=== PATIENT | female | born 1955 | race Two or more races ===

== ENCOUNTER 2017-02-02 06:55 | Outpatient (CLI) | END 2017-02-02 06:57 | disposition short-term general hospital (02) | LOC: AMBL 06:55 | PROVIDERS: ATTEND Emergency Medicine | DX: R06.03 Acute respiratory distress (principal); Z99.81 Dependence on supplemental oxygen; R00.0 Tachycardia, unspecified ==

== ENCOUNTER 2017-05-09 05:36 | Emergency (ER) ==
[2017-05-09] MEDS ORDERED: ANECTINE IVP STA (05:50)
[2017-05-09] MEDS: NORCURON IVP PRN ×3 (05:50→06:51)
[2017-05-09] MEDS ORDERED: DUONEB NEB STA (05:52)
[2017-05-09] MEDS ORDERED: SOLU-MEDROL 125 MG IVP STA (05:54)
[2017-05-09 06:07] VITALS: BMI 27.3
[2017-05-09] MEDS ORDERED: VERSED IVP STA (06:10)
--- NOTE | 2017-05-09 06:14 | ED.PDOC ---
General ED Provider: Dr. MARCEL MALDONADO Chief Complaint: Shortness of Air Stated Complaint: Patient is a 62 year old female who is brought by ambulance with shortness of breath. Time Seen by Physician: 05:50 Mode of Arrival: Ambulance Information Source: EMT Exam Limitations: Clinical condition Primary Care Provider: JOSE DIEZ Nursing and Triage Documentation Reviewed and Agree: Yes Reviewed sepsis parameters & appropriate labs ordered?: Yes System Inflammatory Response Syndrome: Temp 96.8F or Lower Sepsis Protocol: For patient's 13 years and over: Temp is 96.8 and below OR 101 and greater Pulse >90 BPM Resp >20/minute Acutely Altered Mental Status Are patient's symptoms suggestive of a new infection, such as: -Pneumonia -Skin, Soft Tissue -Endocarditis -UTI -Bone, Joint Infection -Implantable Device -Acute Abdominal Infection -Wound Infection -Meningitis -Blood Stream Catheter Infection -Unknown Respiratory Complaint Exam - Respiratory Complaint/Exam Onset/Duration: 1 hour Symptoms Are: Still present Timing: Constant Initial Severity: Severe Current Severity: Severe Location: Chest Associated Signs and Symptoms: Reports: Rapid breathing, Dyspnea, Wheezing Pseudomonas Risk Factors: Reports: None Tuberculosis Risk Factors: Reports: None Home Oxygen Use: Yes Current Antibiotic Use: No Dysphagia Present: No Accessory Muscle Use: Yes (use of abdominal muscles) Retractions: Diaphragmatic Diminished Breath Sounds: Yes Kussmaul Respirations: No Differential Diagnoses: COPD Exacerbation, Pneumonia Non-Traumatic Chest Pain Syncope: EKG Performed Review of Systems - Review Of Systems Constitutional: Reports: Other (unable to obtain due to clinical condition. ) All Other Systems: Other (limite due to condition) Past Medical History - Past Medical History Endocrine: Reports: Dyslipidemia Cardiovascular: Reports: Hypertension, CHF, Other (PVD) Respiratory: Reports: COPD Hematological: Reports: Anemia Gastrointestinal: Reports: None Genitourinary: Reports: None Neuro/Psych: Reports: None Musculoskeletal: Reports: Arthritis, Back Pain Cancer: Reports: None Last Menstrual Period: na Other Pertinent Past Medical History: colon polyp - Surgical History General Surgical History: Reports: , Cholecystectomy, Orthopedic (foot surgery, Toe amputation.), Back Surgery, Other (colonoscopy, laparoscopy) - Family History Family History: Reports: Heart (heart failure- mother ), Cancer (father) - Social History Smoking Status: Current every day smoker (1.5 ppd x 20 years) Alcohol Screening: None - Immunizations Tetanus Shot up to Date: (unknown) Physical Exam - Physical Exam Appearance: Ill-appearing Ill-appearing: Severe Eyes: ALEKSANDAR, EOMI, Conjunctiva clear ENT: Nose normal, Oropharynx normal Neck: Supple Respiratory: Breath sounds diminished, Wheezes Cardiovascular: Tachycardia GI/: Soft Musculoskeletal: Normal strength Skin: Warm, Dry Neurological: Alert to pain Psychiatric: Anxious Interpretation - Radiology Interpretation Radiology Interpretation By: ED Physician Radiology Results: Positive (pulmonary EDEMA and possible infiltreate. ET tube 2 cm above the shital) Exam Interpreted: Portable CXR - Agriculture Specialist Time of Agriculture Specialist Interpretation: 05:55 Rate: Tachy Rhythm: Sinus - EKG Interpretation Time of EKG #1: 06:34 Rate: Tachy Rhythm: Sinus Ectopy: None [place]: NL ST Segment: Normal Interpretation: Left ventricuar Hypertrophy Procedures - Intubation Indication: Present: Respiratory Insufficiency Time of Intubation: 05:39 Medications: Yes: Norcuron, Succinylcholine, Versed Type of Tube Used: Endotracheal Tube Size: 7 Cricoid Pressure Used: No Tube Campuzano Used: Yes Position of Tube at Lip: 22 Number of Attempts: 1 Suction Used: No Glidescope Used: No CO2 Detector Used: Yes Lung Sounds Equal Bilaterally: Yes Intubation Complications: Present: No complications Tube Inserted By: Physician Tube Placement Verified by X-ray: Yes Progress/Xray Impression: 2 cm above the shital. Re-Evaluation - Re-Evaluation Time of Re-Evaluation: 07:17 Status: Improved Vital Signs Stable: Yes Lungs: Clear (good air movement) Physician Notification - Case Discussed Physician Notified: Dr Mason Time of Notification: 07:32 (Accepted to [facility]. ) Critical Care Note - Critical Care Note Total Time (mins): 55 Course - Course Hematology/Chemistry: 05/09/17 05:33 05/09/17 05:33 Orders, Labs, Meds: Lab Review 05/09/17 05/09/17 05/09/17 05:33 05:33 05:33 WBC 13.25 H RBC 3.68 L Hgb 10.6 L Hct 34.0 L MCV 92.4 MCH 28.8 MCHC 31.2 L RDW Coeff of Estephania 13.6 Plt Count 429 Immature Gran % (Auto) 0.8 Neut % (Auto) 51.9 Lymph % (Auto) 36.2 Terrell % (Auto) 6.6 Eos % (Auto) 3.9 Baso % (Auto) 0.6 Immature Gran # (Auto) 0.1 Neut # 6.9 Lymph # 4.8 H Terrell # 0.9 Eos # 0.5 Baso # 0.1 D-Dimer (Manual) Puncture Site O2 Saturation ABG pH ABG pCO2 ABG pO2 ABG HCO3 ABG Total CO2 ABG Base Excess Chip Test O2 Delivery Device FiO2 % Sodium 135 L Potassium 3.9 Chloride 102 Carbon Dioxide 21 L Anion Gap 15.9 BUN 13 Creatinine 1.42 H Estimated GFR (MDRD) 38.00 BUN/Creatinine Ratio 9.15 Glucose 366 H Lactic Acid Calcium 9.3 Total Bilirubin 0.3 AST 60 H ALT 29 Alkaline Phosphatase 184 H Total Creatine Kinase 92 Troponin I < 0.0100 B-Natriuretic Peptide 1292 H Total Protein 7.6 Albumin 3.2 L Globulin 4.4 Albumin/Globulin Ratio 0.73 Procalcitonin Urine Color Urine Clarity Urine pH Ur Specific [place] Urine Protein Urine Glucose (UA) Urine Ketones Urine Blood Urine Nitrite Urine Bilirubin Urine Urobilinogen Ur Leukocyte Esterase Urine Microscopic RBC Ur Squamous Epith Cells Amorphous Sediment Influenza A (Rapid) Influenza B (Rapid) 05/09/17 05/09/17 05/09/17 05:33 05:33 05:52 WBC RBC Hgb Hct MCV MCH MCHC RDW Coeff of Estephania Plt Count Immature Gran % (Auto) Neut % (Auto) Lymph % (Auto) Terrell % (Auto) Eos % (Auto) Baso % (Auto) Immature Gran # (Auto) Neut # Lymph # Terrell # Eos # Baso # D-Dimer (Manual) 4296.29 Puncture Site Lb O2 Saturation 94.0 L ABG pH 7.269 L* ABG pCO2 54.8 H ABG pO2 83.0 L ABG HCO3 25.1 ABG Total CO2 27 ABG Base Excess -2 Chip Test + O2 Delivery Device Vent FiO2 % 100.0 Sodium Potassium Chloride Carbon Dioxide Anion Gap BUN Creatinine Estimated GFR (MDRD) BUN/Creatinine Ratio Glucose Lactic Acid Calcium Total Bilirubin AST ALT Alkaline Phosphatase Total Creatine Kinase Troponin I B-Natriuretic Peptide Total Protein Albumin Globulin Albumin/Globulin Ratio Procalcitonin < 0.05 Urine Color Urine Clarity Urine pH Ur Specific [place] Urine Protein Urine Glucose (UA) Urine Ketones Urine Blood Urine Nitrite Urine Bilirubin Urine Urobilinogen Ur Leukocyte Esterase Urine Microscopic RBC Ur Squamous Epith Cells Amorphous Sediment Influenza A (Rapid) Influenza B (Rapid) 05/09/17 05/09/17 05/09/17 06:09 06:30 07:15 WBC RBC Hgb Hct MCV MCH MCHC RDW Coeff of Estephania Plt Count Immature Gran % (Auto) Neut % (Auto) Lymph % (Auto) Terrell % (Auto) Eos % (Auto) Baso % (Auto) Immature Gran # (Auto) Neut # Lymph # Terrell # Eos # Baso # D-Dimer (Manual) Puncture Site O2 Saturation ABG pH ABG pCO2 ABG pO2 ABG HCO3 ABG Total CO2 ABG Base Excess Chip Test O2 Delivery Device FiO2 % Sodium Potassium Chloride Carbon Dioxide Anion Gap BUN Creatinine Estimated GFR (MDRD) BUN/Creatinine Ratio Glucose Lactic Acid 21.9 H Calcium Total Bilirubin AST ALT Alkaline Phosphatase Total Creatine Kinase Troponin I B-Natriuretic Peptide Total Protein Albumin Globulin Albumin/Globulin Ratio Procalcitonin Urine Color Yellow Urine Clarity Slightly Urine pH 6.0 Ur Specific [place] 1.025 Urine Protein 2+ Urine Glucose (UA) Negative Urine Ketones Negative Urine Blood Trace-intact Urine Nitrite Negative Urine Bilirubin Negative Urine Urobilinogen 0.2 Ur Leukocyte Esterase Negative Urine Microscopic RBC 2-5 Ur Squamous Epith Cells 2-5 Amorphous Sediment 3+ Influenza A (Rapid) Negative by naat Influenza B (Rapid) Negative by naat 05/09/17 07:36 WBC RBC Hgb Hct MCV MCH MCHC RDW Coeff of Estephania Plt Count Immature Gran % (Auto) Neut % (Auto) Lymph % (Auto) Terrell % (Auto) Eos % (Auto) Baso % (Auto) Immature Gran # (Auto) Neut # Lymph # Terrell # Eos # Baso # D-Dimer (Manual) Puncture Site Lr O2 Saturation 99.0 ABG pH 7.360 ABG pCO2 45.7 H ABG pO2 123.0 H ABG HCO3 25.8 ABG Total CO2 27 ABG Base Excess 0 Chip Test + O2 Delivery Device Vent FiO2 % 100.0 Sodium Potassium Chloride Carbon Dioxide Anion Gap BUN Creatinine Estimated GFR (MDRD) BUN/Creatinine Ratio Glucose Lactic Acid Calcium Total Bilirubin AST ALT Alkaline Phosphatase Total Creatine Kinase Troponin I B-Natriuretic Peptide Total Protein Albumin Globulin Albumin/Globulin Ratio Procalcitonin Urine Color Urine Clarity Urine pH Ur Specific [place] Urine Protein Urine Glucose (UA) Urine Ketones Urine Blood Urine Nitrite Urine Bilirubin Urine Urobilinogen Ur Leukocyte Esterase Urine Microscopic RBC Ur Squamous Epith Cells Amorphous Sediment Influenza A (Rapid) Influenza B (Rapid) Orders Category Date Time Status ABG DRAW REQUEST Stat CARDIO 05/09/17 05:53 Completed ABG DRAW REQUEST Stat CARDIO 05/09/17 07:36 Completed EKG-(ED ONLY) Stat CARDIO 05/09/17 05:52 Completed NEBULIZER TREATMENT Stat CARDIO 05/09/17 05:53 Completed VENTILATOR Routine CARDIO 05/09/17 05:55 Completed VENTILATOR Routine CARDIO 05/09/17 06:42 Completed ED APPLY O2 .ONCE EMERGENCY 05/09/17 05:52 Active ED COORDINATOR OF ONLINE PROGRAMS APPLIED .ONCE EMERGENCY 05/09/17 05:52 Active ED IV/MEDIPORT/POWERPORT .ONCE EMERGENCY 05/09/17 05:52 Active ABG Stat LAB 05/09/17 05:52 Completed ABG Stat LAB 05/09/17 07:36 Completed B-TYPE NATRIURETIC PEPTIDE Stat LAB 05/09/17 05:33 Completed BLOOD CULTURE (ED ONLY) Stat LAB 05/09/17 06:09 Received CBC W/ AUTO DIFF Stat LAB 05/09/17 05:33 Completed COMPREHENSIVE METABOLIC PANEL Stat LAB 05/09/17 05:33 Completed CREATINE KINASE Stat LAB 05/09/17 05:33 Completed D-DIMER Stat LAB 05/09/17 05:33 Completed FLU A/B MOLECULAR Stat LAB 05/09/17 06:30 Completed LACTIC ACID Stat LAB 05/09/17 06:09 Completed PROCALCITONIN Stat LAB 05/09/17 05:33 Completed TROPONIN I Stat LAB 05/09/17 05:33 Completed UA [URINALYSIS C & S IF INDICATED] Stat LAB 05/09/17 07:15 Completed 0.9 % Sodium Chloride [Saline Flush] MEDS 05/09/17 05:52 Discontinued 1 syr IVF PRN PRN Furosemide [Lasix] MEDS 05/09/17 06:51 Discontinued 20 mg IVP ONCE STA Ipratropium/Albuterol Neb [Duoneb] MEDS 05/09/17 05:52 Discontinued 1 vial NEB ONCE STA Levofloxacin/D5w [Levaquin] 100 ml MEDS 05/09/17 06:56 Discontinued IV .STK-MED Levofloxacin/D5w [Levaquin] 500 mg MEDS 05/09/17 06:31 Discontinued Premix 100 ml D5w 1 bag IV ONCE Methylprednisolone Sod Succ/Pf [Solu-Medrol 125 mg] MEDS 05/09/17 05:54 Discontinued 125 mg IVP ONCE STA Midazolam HCl Inj [Versed] MEDS 05/09/17 06:10 Discontinued 5 mg IVP ONCE STA Succinylcholine Chloride [Anectine] MEDS 05/09/17 05:50 Discontinued 70 mg IVP ONCE STA Vecuronium Raymond [Norcuron] MEDS 05/09/17 05:50 Discontinued 1 mg IVP ONCE PRN CHEST, 1V AP ONLY Stat RADS 05/09/17 05:52 Completed Medications Discontinued Medications Generic Name Dose Route Start Last Admin Trade Name Freq PRN Reason Stop Dose Admin Albuterol/Ipratropium 1 vial 05/09/17 05:52 05/09/17 07:00 Duoneb NEB 05/09/17 05:53 1 vial ONCE STA Administration Furosemide 20 mg 05/09/17 06:51 05/09/17 07:35 Lasix IVP 05/09/17 06:52 20 mg ONCE STA Administration Levofloxacin/Dextrose 500 mg/ 100 mls @ 100 mls/hr 05/09/17 06:31 05/09/17 06 :54 Dextrose IV 05/09/17 07:30 100 mls/hr ONCE STA Administration Methylprednisolone Sodium Succinate 125 mg 05/09/17 05:54 05/09/17 05:41 Solu-Medrol 125 Mg IVP 05/09/17 05:55 125 mg ONCE STA Administration Midazolam HCl 5 mg 05/09/17 06:10 05/09/17 05:36 Versed IVP 05/09/17 06:11 5 mg ONCE STA Administration Sodium Chloride 1 syr 05/09/17 05:52 05/09/17 06:11 Saline Flush IVF 1 syr PRN PRN Administration To flush IV Succinylcholine Chloride 70 mg 05/09/17 05:50 05/09/17 05:38 Anectine IVP 05/09/17 05:51 70 mg ONCE STA Administration Vecuronium Raymond 1 mg 05/09/17 05:50 05/09/17 06:51 Norcuron IVP 1 mg ONCE PRN Administration sedation Vital Signs: Temp Pulse Resp BP Pulse Ox 05/09/17 07:55 98 F 91 H 20 115/60 100 05/09/17 05:47 96.5 F L 124 H 30 H 134/75 82 L 05/09/17 05:42 20 Departure - Departure Time of Disposition: 07:38 Disposition: TSF SHORT-TRM HOSP Discharge Problem: Respiratory failure with hypoxia and hypercapnia Qualifiers: Chronicity: acute Qualified Code(s): J96.01 - Acute respiratory failure with hypoxia Acute exacerbation of CHF (congestive heart failure) Qualifiers: Congestive heart failure type: unspecified Qualified Code(s): I50.9 - Heart failure, unspecified Condition: Stable Pt referred to PMD for follow-up: No IPMP verified?: No Allergies/Adverse Reactions: Allergies adhesive tape Adverse Reaction (Verified 05/09/17 06:44) sulfamethoxazole [From Bactrim] Adverse Reaction (Verified 05/09/17 06:44) trimethoprim [From Bactrim] Adverse Reaction (Verified 05/09/17 06:44) Home Medications: Ambulatory Orders 1 [Unobtainable] 05/09/17 Pt. Stabilized Within Hospital's Capabilities/Transferred To: [facility] ICU Transfer Form Completed: Yes
[2017-05-09] MEDS ORDERED: LASIX IVP STA (06:51)
[2017-05-09] MEDS: LEVAQUIN 500 MG in PREMIX 100 ML D5W 1 BAG IV STA ×2 (06:53→06:54)
[2017-05-09] MEDS ORDERED: LEVAQUIN 100 ML IV ONE (06:56)
--- NOTE | 2017-05-09 06:58 | DI ---
Exam: Chest one-view History: Respiratory insufficiency and endotracheal tube placement FINDINGS: Endotracheal tube in place with its tip at the lower margin of the clavicles level. Cardi ac silhouette is upper limits but technique accentuated. Pulmonary vasculature is prominent. Inters titial prominence also present. Retrocardiac opacity is present. No pneumothorax or pleural fluid is seen. Prior right rib fractures. No acute chest wall abnormality is seen. Impression: 1. Vascular and interstitial prominence suggestive of edematous change. 2. Retrocardiac opacity could be summation or consolidative opacity.
[2017-05-09 07:56] VITALS: BP 115/60; TEMP 98
== END 2017-05-09 08:43 | disposition short-term general hospital (02) ==
LOC: ED 05:36 → EDBD 05:36 → ED 08:43
DX: J96.01 Acute respiratory failure with hypoxia (principal); I50.9 Heart failure, unspecified; I10 Essential (primary) hypertension; E78.5 Hyperlipidemia, unspecified; J44.1 Chronic obstructive pulmonary disease with (acute) exacerbation; D64.9 Anemia, unspecified; I49.3 Ventricular premature depolarization; F17.210 Nicotine dependence, cigarettes, uncomplicated
CPT/HCPCS: 36415; 80053; 81001; 82550; 82803; 83605; 83880; 84145; 84484; 85025; 85379; 87040; 87502; 93005; 93010; 94002; 94640; 96361; 96366; 96374; 96375; 96376; 99285